=== PATIENT | female | born 1980 | race Caucasian/White ===

== ENCOUNTER 2022-06-28 16:46 | Emergency (ER) | payer OTHER, SELFPAY ==
--- NOTE | 2022-06-28 16:50 | ED.LOWEXIN ---
HPI - Extremity Injury (Lower) General Chief Complaint: Extremity Injury, Lower Stated Complaint: injury to left calf Time Seen by Provider: 06/28/22 16:50 Source: patient and RN notes reviewed History of Present Illness HPI Narrative: patient is a 41 old female who presents to urgent care with complaints of left calf pain. Patient states that she was loading kids onto the bus after school today and heard a pop in the left calf. Patient states that she has since then walked the dog, dropped her kids off at home, it is and drove herself to the facility. Patient states that she does have pain that is worsened with weight-bearing. Patient has not taken anything [id number] for her pain. No other acute complaints. No acute distress noted. Patient aware the plan of care. Some parts of this dictation were generated by voice recognition software and may contain typographical and/or grammatical inaccuracies. Related Data Home Medications Medication Instructions Recorded Confirmed escitalopram oxalate 20 mg tablet 20 mg PO DAILY 06/28/22 06/28/22 norgestimate 0.25 mg-ethinyl 1 tablet PO DAILY 06/28/22 06/28/22 estradiol 35 mcg tablet (Sprintec (28)) Allergies Allergy/AdvReac Type Severity Reaction Status Date / Time No Known Allergies Allergy Unverified 06/28/22 17:08 Review of Systems Review of Systems: CONSTITUTIONAL: Denies fever, chills, or sweats. EYES: Denies visual changes, redness, or discharge. ENT: Denies rhinorrhea, congestion, sore throat, or otalgia. CARDIOVASCULAR: Denies chest pain, palpitations, or edema. RESPIRATORY: Denies cough or dyspnea. GASTROINTESTINAL: Denies abdominal pain, nausea, vomiting, or diarrhea. GENITOURINARY: Denies dysuria or hematuria. SKIN: Denies rash or itching. MUSCULOSKELETAL: Reports of left calf pain NEUROLOGIC: Denies headache, numbness, or weakness. All other systems reviewed are negative, except as documented in HPI. PMFSH Comments At the time of my signature, I reviewed and agree with the nursing past medical, surgical, social, and family history. There is no relevant family history pertinent to the patient complaint. Exam Narrative: GENERAL: This is a well-nourished, well-developed patient, in no apparent distress. HEAD: normocephalic, atraumatic. EYES: PERRL. Sclera clear/white. Vision is grossly intact. EARS: External ears normal NOSE: External nose normal with no obvious nasal discharge, nares without redness, no rhinorrhea. THROAT: Mucous membranes moist NECK: Neck supple SKIN: warm, intact with no suspicious lesions or rash, good texture and turgor. NEURO: awake, alert, and oriented to person, place and time. There were no obvious focal neurologic abnormalities. EXTREMITIES: mild tenderness to the left calf without obvious deformity / bulging/edema /ecchymosis. Positive strong a left pedal pulse with capillary refill less than 2 seconds. Pain exacerbated with Flexion and weight-bearing. Course Course Level of Care: Express Care Visit Vital Signs Vital signs: Vital Signs Temperature 97.7 F 06/28/22 16:56 Pulse Rate 73 06/28/22 16:56 Respiratory Rate 20 06/28/22 16:56 Blood Pressure 128/71 06/28/22 16:56 Pulse Oximetry 100 06/28/22 16:56 Oxygen Delivery Room Air 06/28/22 16:56 Temperature 97.7 F 06/28/22 16:56 Pulse Rate 73 06/28/22 16:56 Respiratory Rate 20 06/28/22 16:56 Blood Pressure 128/71 06/28/22 16:56 Pulse Oximetry 100 06/28/22 16:56 Oxygen Delivery Room Air 06/28/22 16:56 reviewed MDM - Extremity Injury (Lower) MDM Narrative Medical decision making narrative: advised patient to refrain from any strenuous activity until activity as tolerated as normal. Typically muscle strain/ tears in the calf are not necessarily needing surgical repair however if he develops any increase in pain associated with bulging or inability to bear weight -go to the emergency room for further evalua
[2022-06-28 16:56] VITALS: BP 128/71; PULSE 73; RESP 20; TEMP 36.5; O2SAT 100
== END 2022-06-28 17:20 | disposition home or self-care (01) ==
PROVIDERS: Emergency Provider Nurse Practitioner Family
DX: S86.112A Strain of other muscle(s) and tendon(s) of posterior muscle group at lower leg level, left leg, initial encounter (principal); X58.XXXA Exposure to other specified factors, initial encounter
CPT/HCPCS: 99202; G0463